=== PATIENT | female | born 1975 | race Caucasian/White ===

== ENCOUNTER 2021-08-28 13:44 | Observation (INO) | payer MEDICAID, OTHER ==
[2021-08-28 15:31] LABS: #Eosinphils 0.3 thou/uL (0.0-0.7); #Lymphocytes 2.5 thou/uL (1.20-3.40); #Monocytes 0.7 thou/uL (0.11-0.59); %Basophils 0.3 % (0.0-1.0); %Eosinophils 2.3 % (0.0-10.0); %Lymphocytes 18.4 % (21.0-51.0); %Monocytes 4.9 % (0.0-10.0); %Neutrophils 74.1 % (42.0-75.0); Hemoglobin 13.8 g/dL (12.0-16.0); Mean Corpuscular HGB CONC 34.6 g/dL (32.0-36.0); Mean Corpuscular Hemoglobin 32.4 pg (27.0-31.0); Mean Corpuscular Volume 93.6 fL (78.0-98.0); Mean Platelet Volume 7.9 fL (7.4-10.4); Platelet Count 231 thou/uL (130-400); RBC Distribution Width 11.5 % (11.5-14.5); Red Blood Cell (RBC) Count 4.25 mill/uL (4.20-5.40); White Blood Cell (WBC) Count 13.5 thou/uL (4.8-10.8)
[2021-08-28 15:55] LABS: ALT (SGPT) 15 U/L (8-55); AST (SGOT) 9 U/L (5-34); Albumin 3.7 g/dL (3.5-5.0); Alkaline Phosphatase 96 U/L (40-110); Anion Gap 9 mmol/L (10-20); BUN (Urea Nitrogen) 10 mg/dL (7.0-18.7); Bilirubin, Total 0.5 mg/dL (0.2-1.2); Calc. Creatinine Clearance 0 mL/min (70-130); Calcium 9.4 mg/dL (7.8-10.44); Carbon Dioxide 23 mmol/L (22-29); Chloride 109 mmol/L (98-107); Globulin 2.9 g/dL (2.4-3.5); Glucose 79 mg/dL (70-105); Potassium 3.6 mmol/L (3.5-5.1); Protein, Total 6.6 g/dL (6.0-8.3); Sodium 137 mmol/L (136-145)
[2021-08-28] MEDS ORDERED: Metoclopramide HCl 10 MG/2 ML VIAL ONE (16:12)
[2021-08-28] MEDS ORDERED: diphenhydrAMINE 50 MG/ML VIAL ONE (16:15)
[2021-08-28 16:43] LABS: Bilirubin Negative (Negative); Blood, Urine Negative (Negative); Clarity Clear (Clear); Glucose, Urine (Dipstick) Normal (Negative); Ketone, Urine Negative (Negative); Leukocyte Negative Leu/uL (Negative); Nitrite Negative (Negative); Protein, Urine (Dipstick) 20 mg/dL (Neg-Trace); Urobilinogen Normal mg/dL (Less than 2); pH, Urine 6.5 (5.0-9.0)
[2021-08-28 16:44] LABS: Pregnancy Test - Urine (BHCG) Negative (Negative); Pregu Control Background? CLEAR/WHITE (CLR/WHITE); Pregu Control Bar Appear? YES (CONTROL BAR)
[2021-08-28 16:52] LABS: Amphetamine Not Detected (NotDetected); Barbiturates Screen Not Detected (NotDetected); Benzodiazepine Screen Not Detected (NotDetected); Cocaine Metabolite Screen Not Detected (NotDetected); Methadone Not Detected (NotDetected); Methamphetamine Not Detected (NotDetected); Opiate Screen Not Detected (NotDetected); Oxycodone Screen Not Detected (NotDetected); Phencyclidine (PCP) Not Detected (NotDetected); THC/Cannabinoid Screen Detected (NotDetected); Tricyclic Screen Detected (NotDetected)
[2021-08-28] MEDS ORDERED: Aspirin Chewable 81 MG TAB ONE (17:49)
[2021-08-28] MEDS ORDERED: Ondansetron PF 4 MG/2 ML Vial IVP PRN (19:14)
[2021-08-28] MEDS ORDERED: Guaifenesin DM 100-10/5 ML UDCUP PO PRN (19:14)
[2021-08-28] MEDS ORDERED: Senokot S 8.6-50 MG TAB PO PRN (19:14)
[2021-08-28] MEDS ORDERED: Bisacodyl 5 MG TAB PO PRN (19:14)
[2021-08-28] MEDS ORDERED: Melatonin 3 MG TAB PO PRN (19:26)
[2021-08-28] MEDS ORDERED: hydrALAZINE 20 MG/ML VIAL SLOW IVP PRN (19:26)
[2021-08-28] MEDS ORDERED: Nicotine 21 MG PATCH TD SCH (20:00)
[2021-08-28] MEDS ORDERED: Atorvastatin Calcium 40 MG TAB PO SCH (21:00)
[2021-08-28] MEDS: Famotidine/PF 20 mg/2ml Vial SLOW IVP SCH (21:18)
[2021-08-28] MEDS ORDERED: Dextrose 5% in Water 1,000 ML IV PRN (21:21)
[2021-08-28] MEDS ORDERED: HumaLOG 300 UNITS/3 ML VIAL SC PRN ×2 (21:21)
[2021-08-28] MEDS ORDERED: Dextrose 50% Abboject 50 ML SYRINGE SLOW IVP PRN (21:21)
[2021-08-28 21:40] VITALS: BMI 40.8
[2021-08-29 06:19] LABS: #Basophils 0.1 thou/uL (0.0-0.2); #Eosinphils 0.5 thou/uL (0.0-0.7); #Monocytes 0.7 thou/uL (0.11-0.59); #Neutrophils 7.7 thou/uL (1.40-6.50); %Basophils 0.6 % (0.0-1.0); %Eosinophils 3.9 % (0.0-10.0); %Monocytes 5.7 % (0.0-10.0); %Neutrophils 64.8 % (42.0-75.0); Hemoglobin 13.2 g/dL (12.0-16.0); Mean Corpuscular HGB CONC 34.2 g/dL (32.0-36.0); Mean Corpuscular Hemoglobin 32.3 pg (27.0-31.0); Mean Corpuscular Volume 94.3 fL (78.0-98.0); Mean Platelet Volume 8.1 fL (7.4-10.4); Platelet Count 232 thou/uL (130-400); RBC Distribution Width 11.6 % (11.5-14.5); Red Blood Cell (RBC) Count 4.09 mill/uL (4.20-5.40); White Blood Cell (WBC) Count 11.8 thou/uL (4.8-10.8)
[2021-08-29 06:34] LABS: Hemoglobin A1c 8.3 % (4.0-6.0)
[2021-08-29 06:44] LABS: ALT (SGPT) 14 U/L (8-55); AST (SGOT) 9 U/L (5-34); Albumin 3.3 g/dL (3.5-5.0); Alkaline Phosphatase 93 U/L (40-110); Anion Gap 11 mmol/L (10-20); BUN (Urea Nitrogen) 9 mg/dL (7.0-18.7); Bilirubin, Total 0.3 mg/dL (0.2-1.2); Calc. Creatinine Clearance 165 mL/min (70-130); Calcium 8.8 mg/dL (7.8-10.44); Carbon Dioxide 21 mmol/L (22-29); Cardiac Risk 4.1 (Less than 4.5); Chloride 110 mmol/L (98-107); Cholesterol 102 mg/dl (< 200 Desired); Globulin 2.6 g/dL (2.4-3.5); Glucose 158 mg/dL (70-105); HDL Cholesterol 25 mg/dL (>60 Neg Risk); LDL Cholesterol, Calculated 63 mg/dL; Potassium 3.7 mmol/L (3.5-5.1); Protein, Total 5.9 g/dL (6.0-8.3); Sodium 138 mmol/L (136-145); Triglycerides 70 mg/dL (Less than 150)
[2021-08-29] MEDS: Famotidine/PF 20 mg/2ml Vial SLOW IVP SCH (08:58)
[2021-08-29 09:32] VITALS: TEMP 98.4
[2021-08-29] MEDS ORDERED: Acetaminophen 325 MG TAB PO PRN (09:48)
[2021-08-29 11:13] LABS: SARS-CoV-2 PCR by NAA Not Detected (NotDetected)
[2021-08-29] MEDS ORDERED: Ketorolac Tromethamine 30 MG/ML VIAL IVP SCH (13:15)
[2021-08-29] MEDS ORDERED: Clopidogrel Bisulfate 75 MG TAB PO SCH (15:00)
[2021-08-29] MEDS ORDERED: Aspirin 81 mg Enteric Coated Tablet PO SCH (15:00)
[2021-08-29 16:49] VITALS: BP 174/74
[2021-08-30] MEDS ORDERED: Clopidogrel Bisulfate 75 MG TAB PO SCH (09:00)
[2021-08-31] MEDS ORDERED: FLU VACC QS2021-22(6MOS UP)/PF 60 MCG/0.5 ML SYRINGE IM ONE (09:00)
== END 2021-08-29 17:41 | disposition home or self-care (01) ==
LOC: ERS 13:44 → NEURO 17:52
PROVIDERS: ADMIT Family Medicine; ATTEND Internal Medicine
DX: G43.909 Migraine, unspecified, not intractable, without status migrainosus (principal); R53.1 Weakness; I10 Essential (primary) hypertension; E11.9 Type 2 diabetes mellitus without complications; I69.354 Hemiplegia and hemiparesis following cerebral infarction affecting left non-dominant side; J45.909 Unspecified asthma, uncomplicated; F17.210 Nicotine dependence, cigarettes, uncomplicated; E78.00 Pure hypercholesterolemia, unspecified; J20.9 Acute bronchitis, unspecified; D72.829 Elevated white blood cell count, unspecified; E03.9 Hypothyroidism, unspecified; F12.10 Cannabis abuse, uncomplicated; I07.1 Rheumatic tricuspid insufficiency; Z79.84 Long term (current) use of oral hypoglycemic drugs; Z79.899 Other long term (current) drug therapy; Z88.0 Allergy status to penicillin; Z20.822 Contact with and (suspected) exposure to COVID-19
CPT/HCPCS: 36415; 36416; 70450; 70551; 80053; 80061; 80306; 81003; 81025; 83036; 84443; 84484; 85025; 93005; 93306; 93880; 94640; 96365; 96366; 96375; 96376; G0378; J1200; J1885; J2765; J7620; S0028; U0003; U0005

== ENCOUNTER 2021-09-30 20:14 | Observation (INO) | payer OTHER ==
[2021-09-30 20:43] LABS: #Basophils 0.1 thou/uL (0.0-0.2); #Eosinphils 0.3 thou/uL (0.0-0.7); #Lymphocytes 2.9 thou/uL (1.20-3.40); #Monocytes 0.7 thou/uL (0.11-0.59); #Neutrophils 11.5 thou/uL (1.40-6.50); %Basophils 0.4 % (0.0-1.0); %Eosinophils 1.7 % (0.0-10.0); %Lymphocytes 18.6 % (21.0-51.0); %Monocytes 4.7 % (0.0-10.0); %Neutrophils 74.5 % (42.0-75.0); Hemoglobin 14.3 g/dL (12.0-16.0); Mean Corpuscular HGB CONC 34.7 g/dL (32.0-36.0); Mean Corpuscular Hemoglobin 32.9 pg (27.0-31.0); Mean Corpuscular Volume 94.8 fL (78.0-98.0); Mean Platelet Volume 7.6 fL (7.4-10.4); Platelet Count 279 thou/uL (130-400); RBC Distribution Width 11.8 % (11.5-14.5); Red Blood Cell (RBC) Count 4.35 mill/uL (4.20-5.40); White Blood Cell (WBC) Count 15.5 thou/uL (4.8-10.8)
[2021-09-30 20:53] LABS: INR-International Normal Ratio 0.9; PTT 27.1 sec (22.9-36.1); Prothrombin Time 12.6 sec (12.0-14.7)
[2021-09-30] MEDS ORDERED: Clopidogrel Bisulfate 75 MG TAB ONE (20:55)
[2021-09-30] MEDS ORDERED: Aspirin Chewable 81 MG TAB ONE (20:55)
[2021-09-30 21:06] LABS: ALT (SGPT) 16 U/L (8-55); AST (SGOT) 12 U/L (5-34); Albumin 4.1 g/dL (3.5-5.0); Alkaline Phosphatase 111 U/L (40-110); Anion Gap 11 mmol/L (10-20); BUN (Urea Nitrogen) 14 mg/dL (7.0-18.7); Bilirubin, Total 0.3 mg/dL (0.2-1.2); CK (CPK) 41 U/L (29-168); Calc. Creatinine Clearance 0 mL/min (70-130); Calcium 9.6 mg/dL (7.8-10.44); Carbon Dioxide 24 mmol/L (22-29); Chloride 109 mmol/L (98-107); Globulin 2.9 g/dL (2.4-3.5); Glucose 170 mg/dL (70-105); Lipase 44 U/L (8-78); Potassium 4.3 mmol/L (3.5-5.1); Sodium 140 mmol/L (136-145)
[2021-09-30] MEDS ORDERED: Ondansetron ODT 4 MG TAB SL PRN (22:45)
[2021-09-30] MEDS ORDERED: Ondansetron PF 4 MG/2 ML Vial IVP PRN (22:45)
[2021-09-30] MEDS ORDERED: hydrALAZINE 20 MG/ML VIAL SLOW IVP PRN (23:18)
[2021-09-30] MEDS ORDERED: Senokot S 8.6-50 MG TAB PO PRN (23:18)
[2021-09-30] MEDS ORDERED: Dextrose 5% in Water 1,000 ML IV PRN (23:18)
[2021-09-30] MEDS ORDERED: Zolpidem Tartrate 5 MG TAB PO PRN (23:18)
[2021-09-30] MEDS ORDERED: Dextrose 50% Abboject 50 ML SYRINGE SLOW IVP PRN (23:18)
[2021-09-30] MEDS ORDERED: HumaLOG 300 UNITS/3 ML VIAL SC PRN (23:18)
[2021-09-30] MEDS ORDERED: Sodium Chloride 0.9% 1,000 ML IV SCH (23:30)
[2021-09-30] MEDS ORDERED: Nicotine 14 MG PATCH TD SCH (23:30)
[2021-10-01 00:54] VITALS: BMI 40.2
[2021-10-01 06:07] LABS: #Basophils 0.1 thou/uL (0.0-0.2); #Eosinphils 0.4 thou/uL (0.0-0.7); #Lymphocytes 3.6 thou/uL (1.20-3.40); #Monocytes 0.7 thou/uL (0.11-0.59); #Neutrophils 8.1 thou/uL (1.40-6.50); %Basophils 0.6 % (0.0-1.0); %Eosinophils 2.8 % (0.0-10.0); %Lymphocytes 27.9 % (21.0-51.0); %Monocytes 5.7 % (0.0-10.0); %Neutrophils 63.1 % (42.0-75.0); Hemoglobin 13.4 g/dL (12.0-16.0); Mean Corpuscular Hemoglobin 32.3 pg (27.0-31.0); Mean Platelet Volume 7.7 fL (7.4-10.4); Platelet Count 266 thou/uL (130-400); RBC Distribution Width 11.8 % (11.5-14.5); Red Blood Cell (RBC) Count 4.14 mill/uL (4.20-5.40); White Blood Cell (WBC) Count 12.9 thou/uL (4.8-10.8)
[2021-10-01 06:28] LABS: Anion Gap 13 mmol/L (10-20); BUN (Urea Nitrogen) 11 mg/dL (7.0-18.7); Calc. Creatinine Clearance 172 mL/min (70-130); Carbon Dioxide 19 mmol/L (22-29); Cardiac Risk 4.2 (Less than 4.5); Chloride 109 mmol/L (98-107); Cholesterol 117 mg/dl (< 200 Desired); Glucose 167 mg/dL (70-105); HDL Cholesterol 28 mg/dL (>60 Neg Risk); LDL Cholesterol, Calculated 75 mg/dL; Potassium 4.1 mmol/L (3.5-5.1); Sodium 137 mmol/L (136-145); Triglycerides 72 mg/dL (Less than 150)
[2021-10-01] MEDS ORDERED: LITHIUM CARBONATE 600 MG PO SCH (09:00)
[2021-10-01] MEDS ORDERED: risperiDONE 3 MG TAB PO SCH ×2 (09:00)
[2021-10-01] MEDS ORDERED: Famotidine 20 MG TAB PO SCH (09:00)
[2021-10-01] MEDS ORDERED: Clopidogrel Bisulfate 75 MG TAB PO SCH (09:00)
[2021-10-01] MEDS ORDERED: Amlodipine 10 MG TAB PO SCH ×2 (09:00)
[2021-10-01] MEDS ORDERED: Aspirin 325 mg Enteric Coated Tablet PO SCH (09:00)
[2021-10-01] MEDS ORDERED: Aspirin 325 MG TAB PO SCH (09:00)
[2021-10-01] MEDS ORDERED: Enoxaparin Sodium 40 MG/0.4 ML SYRINGE SC SCH (09:00)
[2021-10-01] MEDS ORDERED: Levothyroxine Sodium 100 MCG TAB PO SCH (09:00)
[2021-10-01] MEDS ORDERED: Magnevist 469MG/ML 20 ML VIAL ONE (11:09)
[2021-10-01 12:03] VITALS: BP 142/65; TEMP 98.7
[2021-10-01 17:44] LABS: SARS-CoV-2 PCR by NAA Not Detected (NotDetected)
[2021-10-01] MEDS ORDERED: Atorvastatin Calcium 40 MG TAB PO SCH ×2 (21:00)
[2021-10-04] MEDS ORDERED: FLU VACC QS2021-22(6MOS UP)/PF 60 MCG/0.5 ML SYRINGE IM ONE (09:00)
== END 2021-10-01 14:24 | disposition home or self-care (01) ==
LOC: ERS 20:14 → NEURO 22:30
PROVIDERS: ADMIT Internal Medicine; ATTEND Internal Medicine
DX: R53.1 Weakness (principal); R47.01 Aphasia; I66.02 Occlusion and stenosis of left middle cerebral artery; I10 Essential (primary) hypertension; E11.9 Type 2 diabetes mellitus without complications; E89.0 Postprocedural hypothyroidism; E78.5 Hyperlipidemia, unspecified; F17.210 Nicotine dependence, cigarettes, uncomplicated; Z20.822 Contact with and (suspected) exposure to COVID-19; Z79.02 Long term (current) use of antithrombotics/antiplatelets; Z79.84 Long term (current) use of oral hypoglycemic drugs; Z79.890 Hormone replacement therapy; Z79.899 Other long term (current) drug therapy; Z86.73 Personal history of transient ischemic attack (TIA), and cerebral infarction without residual deficits; Z88.0 Allergy status to penicillin; Z91.018 Allergy to other foods
CPT/HCPCS: 36415; 36416; 70450; 70496; 70498; 70553; 71045; 80048; 80053; 80061; 82550; 83690; 83880; 84146; 84484; 85025; 85610; 85730; 93005; 93306; 96372; A9579; G0378; J1650; J7050; U0003; U0005

== ENCOUNTER 2022-10-02 12:05 | Observation (INO) | payer OTHER ==
[2022-10-02 13:02] LABS: #Eosinphils 0.1 thou/uL (0.0-0.7); #Lymphocytes 1.7 thou/uL (1.20-3.40); #Monocytes 0.4 thou/uL (0.11-0.59); #Neutrophils 4.2 thou/uL (1.40-6.50); %Basophils 0.3 % (0.0-1.0); %Eosinophils 1.1 % (0.0-10.0); %Lymphocytes 26.1 % (21.0-51.0); %Monocytes 5.8 % (0.0-10.0); %Neutrophils 66.6 % (42.0-75.0); Hemoglobin 13.7 g/dL (12.0-16.0); Mean Corpuscular HGB CONC 34.6 g/dL (32.0-36.0); Mean Corpuscular Hemoglobin 32.3 pg (27.0-31.0); Mean Corpuscular Volume 93.6 fl (78.0-98.0); Mean Platelet Volume 8.3 fL (7.4-10.4); Platelet Count 232 10x3/uL (130-400); RBC Distribution Width 11.6 % (11.5-14.5); Red Blood Cell (RBC) Count 4.24 mill/uL (4.20-5.40); White Blood Cell (WBC) Count 6.4 10x3/uL (4.8-10.8)
[2022-10-02 13:04] LABS: PTT 26.4 sec (22.9-36.1); Prothrombin Time 13.8 sec (12.0-14.7)
[2022-10-02 13:07] LABS: BHCG - Serum Negative (NEGATIVE); Pregs Control Background? CLEAR/WHITE (CLR/WHITE); Pregs Control Bar Appear? YES (CONTROL BAR)
[2022-10-02 13:12] LABS: ALT (SGPT) 8 U/L (8-55); AST (SGOT) 11 U/L (5-34); Alkaline Phosphatase 111 U/L (40-110); Anion Gap 11 mmol/L (10-20); BUN (Urea Nitrogen) 15 mg/dL (7.0-18.7); Bilirubin, Total 0.3 mg/dL (0.2-1.2); Calc. Creatinine Clearance 0 mL/min (70-130); Calcium 9.4 mg/dL (7.8-10.44); Carbon Dioxide 20 mmol/L (22-29); Chloride 109 mmol/L (98-107); Estimated GFR 102; Globulin 2.8 g/dL (2.4-3.5); Glucose 139 mg/dL (70-105); Protein, Total 6.8 g/dL (6.0-8.3); Sodium 136 mmol/L (136-145)
[2022-10-02 13:21] LABS: Acetaminophen Less than 10.0 mcg/mL (10.0-30.0); Alcohol Less than 10 mg/dL (Less than 10); Salicylate Less than 8.0 mg/dL (15.0-30.0)
[2022-10-02 13:46] LABS: Bacteria/HPF None Seen HPF (None Seen); Bilirubin Negative (Negative); Blood, Urine Negative (Negative); Clarity Clear (Clear); Glucose, Urine (Dipstick) Normal (Negative); Ketone, Urine Trace mg/dL (Negative); Leukocyte Negative Leu/uL (Negative); Nitrite Negative (Negative); Protein, Urine (Dipstick) 30 mg/dL (Neg-Trace); RBC/HPF 0-3 HPF (0-3); Urobilinogen Normal mg/dL (Less than 2); WBC/HPF 0-3 HPF (0-3); pH, Urine 7.5 (5.0-9.0)
[2022-10-02 13:47] LABS: Specific Gravity, Urine 1.052 (1.002-1.036)
[2022-10-02 13:48] LABS: Amphetamine Not Detected (NotDetected); Barbiturates Screen Not Detected (NotDetected); Benzodiazepine Screen Not Detected (NotDetected); Cocaine Metabolite Screen Not Detected (NotDetected); Methadone Not Detected (NotDetected); Methamphetamine Not Detected (NotDetected); Opiate Screen Not Detected (NotDetected); Oxycodone Screen Not Detected (NotDetected); Phencyclidine (PCP) Not Detected (NotDetected); THC/Cannabinoid Screen Detected (NotDetected); Tricyclic Screen Not Detected (NotDetected)
[2022-10-02] MEDS ORDERED: Aspirin 300 MG Suppository ONE (14:03)
[2022-10-02] MEDS ORDERED: HumaLOG 300 UNITS/3 ML VIAL SC PRN ×2 (14:25)
[2022-10-02] MEDS ORDERED: Dextrose 5% in Water 1,000 ML IV PRN (14:25)
[2022-10-02] MEDS ORDERED: Dextrose 50% Abboject 50 ML SYRINGE SLOW IVP PRN (14:25)
[2022-10-02] MEDS ORDERED: Ondansetron ODT 4 MG TAB PO PRN (14:48)
[2022-10-02] MEDS ORDERED: Ondansetron PF 4 MG/2 ML Vial IVP PRN (14:48)
[2022-10-02] MEDS ORDERED: Acetaminophen 500 MG TAB PO PRN (14:48)
[2022-10-02] MEDS ORDERED: hydrALAZINE 20 MG/ML VIAL SLOW IVP PRN (14:48)
[2022-10-02 15:18] VITALS: BMI 34.5
[2022-10-02] MEDS ORDERED: Iopamidol-370 76% 500 ML 1 ML ONE (15:54)
[2022-10-02] MEDS ORDERED: Ketorolac Tromethamine 30 MG/ML VIAL IVP PRN (16:09)
[2022-10-02] MEDS ORDERED: Ketorolac Tromethamine 30 MG/ML VIAL IVP SCH (16:15)
[2022-10-02] MEDS: Sodium Chloride 0.9% 1,000 ML IV SCH (17:25)
[2022-10-02] MEDS ORDERED: Albuterol 200 PUFF (6.7GM INHALER) INH PRN (19:06)
[2022-10-02] MEDS ORDERED: Acetaminophen 650 MG Suppository PR PRN (19:34)
[2022-10-02] MEDS: carBAMazepine 100 MG/5 ML UDCUP PO SCH (21:41)
[2022-10-02] MEDS: Carvedilol 3.125 MG TAB PO SCH (21:41)
[2022-10-02] MEDS: Famotidine 20 MG TAB PO SCH (21:41)
[2022-10-02] MEDS: metFORMIN 500 MG TAB PO SCH (21:42)
[2022-10-03] MEDS: Sodium Chloride 0.9% 1,000 ML IV SCH (05:38)
[2022-10-03 05:55] LABS: Hemoglobin A1c 6.3 % (4.0-6.0)
[2022-10-03 05:57] LABS: Cardiac Risk 5.2 (Less than 4.5)
[2022-10-03] MEDS ORDERED: Levothyroxine Sodium 100 MCG TAB PO SCH (09:00)
[2022-10-03] MEDS: metFORMIN 500 MG TAB PO SCH ×2 (09:39→20:48)
[2022-10-03] MEDS: risperiDONE 3 MG TAB PO SCH (09:39)
[2022-10-03] MEDS: Aspirin 81 mg Enteric Coated Tablet PO SCH (09:40)
[2022-10-03] MEDS: Clopidogrel Bisulfate 75 MG TAB PO SCH (09:40)
[2022-10-03] MEDS: Amlodipine 10 MG TAB PO SCH (09:40)
[2022-10-03] MEDS: Atorvastatin Calcium 40 MG TAB PO SCH (09:41)
[2022-10-03] MEDS: Famotidine 20 MG TAB PO SCH ×2 (09:41→20:48)
[2022-10-03] MEDS: carBAMazepine 100 MG/5 ML UDCUP PO SCH ×2 (10:13→21:05)
[2022-10-03] MEDS: traMADol HCl 50 MG TAB PO PRN (11:54)
[2022-10-03] MEDS: Carvedilol 3.125 MG TAB PO SCH ×2 (12:15→20:48)
[2022-10-03] MEDS ORDERED: SUMAtriptan Succinate 50 MG TAB PO SCH (16:51)
[2022-10-04] MEDS: Levothyroxine Sodium 100 MCG TAB PO SCH (05:40)
[2022-10-04] MEDS: Famotidine 20 MG TAB PO SCH ×2 (08:42→21:11)
[2022-10-04] MEDS: Amlodipine 10 MG TAB PO SCH (08:42)
[2022-10-04] MEDS: metFORMIN 500 MG TAB PO SCH ×2 (08:42→21:11)
[2022-10-04] MEDS: Atorvastatin Calcium 40 MG TAB PO SCH (08:42)
[2022-10-04] MEDS: Clopidogrel Bisulfate 75 MG TAB PO SCH (08:43)
[2022-10-04] MEDS: risperiDONE 3 MG TAB PO SCH (08:43)
[2022-10-04] MEDS: Carvedilol 3.125 MG TAB PO SCH ×2 (08:43→21:11)
[2022-10-04] MEDS: Aspirin 81 mg Enteric Coated Tablet PO SCH (08:43)
[2022-10-04] MEDS: carBAMazepine 100 MG/5 ML UDCUP PO SCH ×2 (09:53→21:12)
[2022-10-04] MEDS: SUMAtriptan Succinate 50 MG TAB PO PRN (09:53)
[2022-10-04] MEDS: traMADol HCl 50 MG TAB PO PRN (21:10)
[2022-10-05] MEDS: Levothyroxine Sodium 100 MCG TAB PO SCH (06:04)
[2022-10-05 08:09] VITALS: TEMP 97.6
[2022-10-05] MEDS: Carvedilol 3.125 MG TAB PO SCH (08:20)
[2022-10-05] MEDS: Clopidogrel Bisulfate 75 MG TAB PO SCH (08:20)
[2022-10-05] MEDS: Famotidine 20 MG TAB PO SCH (08:20)
[2022-10-05] MEDS: Aspirin 81 mg Enteric Coated Tablet PO SCH (08:20)
[2022-10-05] MEDS: Amlodipine 10 MG TAB PO SCH (08:20)
[2022-10-05] MEDS: Atorvastatin Calcium 40 MG TAB PO SCH (08:20)
[2022-10-05] MEDS: carBAMazepine 100 MG/5 ML UDCUP PO SCH (08:21)
[2022-10-05 09:53] VITALS: BP 113/84
[2022-10-05] MEDS: metFORMIN 500 MG TAB PO SCH (10:10)
[2022-10-05] MEDS: risperiDONE 3 MG TAB PO SCH (10:10)
[2022-10-05] MEDS: SUMAtriptan Succinate 50 MG TAB PO PRN (10:10)
[2022-10-05] MEDS ORDERED: FLU VACC QS2022-23(6MOS UP)/PF 60 MCG/0.5 ML SYRINGE IM ONE (17:00)
== END 2022-10-05 11:27 | disposition home or self-care (01) ==
LOC: ERS 12:05 → NEURO 13:57
PROVIDERS: ADMIT Internal Medicine; ATTEND Internal Medicine
DX: R51.9 Headache, unspecified (principal); R53.1 Weakness; I66.02 Occlusion and stenosis of left middle cerebral artery; G93.41 Metabolic encephalopathy; F12.10 Cannabis abuse, uncomplicated; I10 Essential (primary) hypertension; E11.9 Type 2 diabetes mellitus without complications; E89.0 Postprocedural hypothyroidism; I69.354 Hemiplegia and hemiparesis following cerebral infarction affecting left non-dominant side; E78.5 Hyperlipidemia, unspecified; F17.210 Nicotine dependence, cigarettes, uncomplicated; Z79.02 Long term (current) use of antithrombotics/antiplatelets; Z79.82 Long term (current) use of aspirin; Z79.84 Long term (current) use of oral hypoglycemic drugs; Z79.890 Hormone replacement therapy; Z79.899 Other long term (current) drug therapy; Z88.0 Allergy status to penicillin; Z91.018 Allergy to other foods; Z20.822 Contact with and (suspected) exposure to COVID-19; W10.8XXA Fall (on) (from) other stairs and steps, initial encounter; Y92.029 Unspecified place in mobile home as the place of occurrence of the external cause
CPT/HCPCS: 36415; 36416; 51701; 70450; 70496; 70498; 70551; 80053; 80061; 80306; 80307; 81003; 81015; 83036; 84439; 84443; 84484; 84703; 85025; 85610; 85730; 93005; 96374; 96376; G0378; J1885; J7050; Q9967; U0003; U0005